=== PATIENT | male | born 1955 | race Caucasian/White ===

== ENCOUNTER 2016-12-26 03:36 | Emergency (ER) | payer MEDICARE ==
[2017-01-07] MEDS ORDERED: VIAGRA25 MG PO (14:02)
[2017-01-07] MEDS ORDERED: NEURONTIN 400400 MG PO (14:02)
[2017-01-08 16:49] VITALS: BMI 26.2
== END 2016-12-26 04:04 | disposition home or self-care (01) ==
LOC: D.ER 03:36
DX: L72.3 Sebaceous cyst (principal); F17.200 Nicotine dependence, unspecified, uncomplicated

== ENCOUNTER 2017-01-08 05:52 | Inpatient (IN) | payer MEDICARE ==
[~2017-01-08] VITALS: Ht 172.7 cm; Wt 78.2 kg
[2017-01-08] VITALS (12 sets, daily range): BP systolic 117–173; BP diastolic 70–113; Ht 172.7 cm; Wt 78.2 kg
[~2017-01-08 05:52] MED LIST: NEURONTIN 400400 MG PO; VIAGRA25 MG PO
[2017-01-08] MEDS ORDERED: ACETAMINOPHEN325 MG PO (09:02)
--- NOTE | 2017-01-08 18:01 | NUR ---
1635 RECIEVED PT FROM OR. ASSESSMENT PER FLOWSHEET. 1700 COLLAR ON UP TO STAND TO VOID NO SUCCESS. 1740 UP TO BEDSIDE COMMODE WITH COLLAR ON VOIDED 200 CC.
--- NOTE | 2017-01-08 19:25 | NUR ---
PT IN BED WITH EYES CLOSED AND CHEST RISING. NO S/S OF DISTRESS NOTED. RECEIVING IV 1/2NS AND MORPHINE MACHINE CANDLE MOLDER TO LEFT FOREARM. COMPLAINS OF PAIN TO RIGHT SHOULDER. PT ALERT AND ORIENTED. UP TO BEDSIDE COMODE. WEARS SOFT COLLAR WHEN UP. NO OTHER CONCERNS NOTED AT THIS TIME.
--- NOTE | 2017-01-08 21:31 | NUR ---
PT IN BED WITH EYES OPEN WATCHNG TV. RETURNING TO BED FROM USING BEDSIDE COMMODE. NO COMPLAINTS OR CONCERNS NOTED AT THIS TIME. CALL LIGHT IN REACH.
--- NOTE | 2017-01-08 23:14 | NUR ---
PT IN BED WITH EYES OPEN WATCHING TV. RECEIVING MORPHINE VIA LIQUOR RUNNER. NO COMPLAINTS OR CONCERNS NOTED AT THIS TIME. CALL LIGHT IN REACH.
[2017-01-09] VITALS (12 sets, daily range): BP systolic 107–173; BP diastolic 69–101
--- NOTE | 2017-01-09 01:57 | NUR ---
PT IN BED WITH EYES OPEN WATCHING TV. NO COMPLAINTS OR CONCERNS NOTED. NO S/S OF DISTRESS NOTED. CALL LIGHT IN REACH.
--- NOTE | 2017-01-09 03:44 | NUR ---
PT IN BED WITH EYES OPEN WATCHING TV. ALERT AND ORIENTED. NO S/S OF DISTRESS NOTED. CALL LIGHT IN REACH.
--- NOTE | 2017-01-09 05:04 | NUR ---
PT SITTING UP ON SIDE OF BED BRUSHING TEETH. NO CONCERNS NOTED AT THIS TIME. CALL LIGHT IN REACH.
--- NOTE | 2017-01-09 07:30 | NUR ---
REPORT RECEIVED. SHIFT ASSESSMENT COMPLETE. PT ALERT AND ORIENTED. PAIN UNDER CONTROL. C/O SOME SORENESS IN THROAT.
--- NOTE | 2017-01-09 08:44 | NUR ---
DR DODGE HAS BEEN BY TO SEE PATIENT. WILL DISCHARGE TO HOME.
--- NOTE | 2017-01-09 09:28 | NUR ---
DR DODGE OFFICE CALLED TO GET F/U. JANUARY 24 AT 3PM
[2017-01-09] MEDS ORDERED: HYDROCODONE-APA1 TAB PO (10:05)
--- NOTE | 2017-01-09 10:50 | NUR ---
IV REMOVED FROM LEFT F/A. TIP INTACT. DISCHARGE INSTRUCTIONS REVIEWED WITH PATIENT AND FAMILY. WRITTEN PRESCRIPTION FOR [facility] PROVIDED TO PATIENT.
--- NOTE | 2017-01-22 10:55 | OP ---
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 PROCEDURE: Anterior cervical discectomy and fusion with removal of osteophytes at C3-C4 and C4-C5 with [employer] VIP anterior cervical plate and screws, [place] PEEK interbody cages, and a [employer] bone stem cell allograft with microscopic illumination. DESCRIPTION OF TECHNIQUE: After induction of general endotracheal anesthesia, the patient was positioned supine on the operating table. After sterile prep and drape of the neck, a freer dissector was used to localized the C4 vertebral body. A transverse skin incision was carried out from the midline to the sternocleidomastoid muscle. The platysma was divided with Bovie cautery. Using blunt and sharp dissection with Metzenbaum scissors, I proceeded in the avascular plane medial to the carotid sheath. The longus colli muscles were elevated from most of C3, C4, and C5. A self-retaining retractor was placed deep to the longus colli muscles. [place] distracting pins were placed at the bodies of C3, C4, and C5. The disc space at C3-C4 and C4-C5 was incised with a #11 blade. The disc material was removed with pituitary rongeurs and curettes. Posteriorly the osteophytes were drilled away with Midas-Darek drill under microscope illumination. Posterior longitudinal ligament was removed with Cloward rongeurs. Following this, the dura was decompressed well. A PEEK interbody cage was then placed in the disc space under distraction at each level. Prior to this, I filled with Biocell bone stem cells. A VIP anterior cervical plate was used to span the C3-C4 and C4-C5 interspaces. Self-drilling screws were placed through the holes of the plate, the locking cams were tightened over the screw heads. Meticulous hemostasis was maintained throughout the wound. Good position of the hardware was confirmed on fluoroscopic x-ray. The platysma and subdermal layer were closed with interrupted 3-0 Vicryl suture. The skin was reapproximated with Steri-Strips and benzoin. A sterile dressing was applied to the wound. The patient was awakened in good condition and taken to recovery. All counts were reported as correct. Estimated blood loss was minimal. TRANSINT:[id number] Voice Confirmation ID: [id number] DOCUMENT ID: [id number] ZULEMA DODGE MD at 1055 CC: [id number] DICTATION DATE: 01/17/17 0949 JEWELRY CUTTER: 01/17/17 1123 DIS IN 01/09/17 [facility] [address] [place] [address]
--- NOTE | 2017-04-26 15:43 | DS ---
PATIENT:JAYCE MCKEON JR :59 MEDICAL RECORD: [id number] DISCHARGE SUMMARY ADMISSION DATE: 01/08/17 DISCHARGE DATE: 01/09/17 ADMISSION DIAGNOSES: Osteophyte formation and disc herniation at C3-C4 and C4-C5 with severe cervical spinal canal stenosis secondary to osteophytes. 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 HOSPITAL COURSE: The patient was admitted for surgery, tolerated the procedure well, was observed in the ICU overnight and discharged home on the following day. DISCHARGE DIET: Regular. MEDICATIONS: [place] 10, 1-2 every 3 hours p.r.n. pain. FOLLOWUP: He is to follow up with Dr. Pineda in 2 weeks with a lateral C-spine. TRANSINT:[id number] Voice Confirmation ID: [id number] DOCUMENT ID: [id number] ZULEMA PINEDA MD at 1543 CC: [id number] DICTATION DATE: 04/24/17 1157 HAIR MACHINE OPERATOR: 04/25/17 0040 DIS IN 01/09/17 [facility] [address] [place] [address]
== END 2017-01-09 10:50 | disposition home or self-care (01) | DRG 30 ==
LOC: D.SDCHOLD 05:52 → D.ICU 05:52 → D.SDCHOLD 08:30 → D.ICU 15:58
PROVIDERS: ADMIT Neurological Surgery
PROC: 0RB30ZZ Excision of Cervical Vertebral Disc, Open Approach (ICD-10-PCS; 2017-01-08)
PROC: 0RG20A0 Fusion of 2 or more Cervical Vertebral Joints with Interbody Fusion Device, Anterior Approach, Anterior Column, Open Approach (ICD-10-PCS; principal; 2017-01-08 10:00)
PROC: 0RG20K0 Fusion of 2 or more Cervical Vertebral Joints with Nonautologous Tissue Substitute, Anterior Approach, Anterior Column, Open Approach (ICD-10-PCS; 2017-01-08 10:00)
DX: M54.12 Radiculopathy, cervical region (principal); M48.02 Spinal stenosis, cervical region; M25.78 Osteophyte, vertebrae